=== PATIENT | male | born 1970 | race Caucasian/White ===

== ENCOUNTER 2018-12-14 09:24 | Emergency (ER) | payer OTHER ==
[~2018-12-14] VITALS: Ht 180.3 cm; Wt 95.0 kg
[2018-12-14 09:37] VITALS: BP 126/84
[2018-12-14] MEDS ORDERED: LIDOcaine 5% patch TP ONE (09:55)
[2018-12-14] MEDS ORDERED: ketorolac trometh inj. 60 MG/2 ML VIAL IM ONE (09:55)
== END 2018-12-14 10:37 | disposition home or self-care (01) ==
LOC: ER 09:25
DX: M54.2 Cervicalgia (principal); M62.838 Other muscle spasm; X58.XXXA Exposure to other specified factors, initial encounter; Y93.89 Activity, other specified; Y92.89 Other specified places as the place of occurrence of the external cause; Y99.0 Civilian activity done for income or pay
CPT/HCPCS: 96372; 99283; J1885

== ENCOUNTER 2019-01-28 23:23 | Emergency (ER) | payer OTHER ==
[~2019-01-28] VITALS: Ht 180.3 cm; Wt 90.0 kg
[2019-01-28] MEDS ORDERED: proCHLORperazine 10 MG/2 ml inj IV STA (23:40)
[2019-01-28] MEDS ORDERED: normal saline 1000ML IV soln IVB ONE (23:45)
[2019-01-28] MEDS ORDERED: proCHLORperazine 10 MG/2 ml inj IV PRN (23:45)
[2019-01-28] MEDS ORDERED: SUMAtriptan succ. 6 MG/0.5ml vial SQ ONE (23:45)
[2019-01-28] MEDS ORDERED: diphenhydrAMINE 50 mg/ml inj IV ONE (23:45)
[2019-01-29] MEDS ORDERED: metoclopramide 5 mg/ml inj IV ONE (00:10)
[2019-01-29] MEDS ORDERED: morphine 4 MG/ML inj SYRINge IV ONE (00:20)
--- NOTE | 2019-01-29 00:40 | NUR ---
RELIEVING RN FOR LUNCH, PT IS RESTING QUIETLY ON GURNEY, LIGHTS ARE OFF, RESP EVEN AND UNLABORED, FAMILY AT BEDSIDE,
[2019-01-29 01:55] VITALS: BP 128/68
== END 2019-01-29 01:57 | disposition home or self-care (01) ==
LOC: ER 23:23
DX: G43.909 Migraine, unspecified, not intractable, without status migrainosus (principal)
CPT/HCPCS: 70450; 96372; 96374; 96375; 99284; J0780; J1200; J2270; J2765; J7030; 99281; J3030

== ENCOUNTER 2025-04-19 09:19 | Emergency (ER) | payer BC, OTHER ==
[~2025-04-19] VITALS: Ht 180.3 cm; Wt 100.0 kg
[2025-04-19 09:19] VITALS: TEMP 98
--- NOTE | 2025-04-19 09:52 | ELECTROCARDIOGRAPH REPORT ---
[facility] Test Date: 2025-04-19 Test Time: 09:50:10 Pat Name: DAKOTA GARCIA Department: [facility] Patient ID: [id number] Room: Gender: M Ward Attendant: : 1970 Requested By: CARLOS REYES Order Number: [id number] Reading MD: Measurements Intervals [place] Rate: 75 P: 23 MD: 173 QRS: -28 QRSD: 109 T: 27 QT: 375 QTc: 419 Interpretive Statements Sinus rhythm Atrial premature complexes Incomplete RBBB and LAFB RSR' in V1 or V2, right VCD or RVH Left ventricular hypertrophy Please click the below link to view image of tracing.
--- NOTE | 2025-04-19 10:07 | Physician Documentation ---
History of Present Illness ~ Chief Complaint: Extremity Swelling Stated Complaint: R ARM SWELLING Time Seen by MD: 09:42 Primary Medical Doctor: JUNIOR COX A 54 years old male with no PMH came to the ED due to the concern of swelling in right upper extremity. He states that he was doing well, Yesterday, while showering he noticed swelling in the biceps region just above the elbow region in right upper extremity and does not limit the function. He regularly go to the gym , denies any trauma or pain, redness. He denies any fever, chills, pain, palpitations, shortness breath, lightheadedness. Medication Reconciliation Allergies: Coded Allergies: No Known Allergies (Unverified , 01/28/19) Past Medical History Past Medical History: No Pertinent History, Headache, Migraine, *MUSCULOSKELETAL* Past Surgical History: noncontributory Alcohol Use: None Drug Use: none Lives In: Home Occupation: employed Review [employer] Systems ROS Constitutional: No fever, chills, dizziness, weight gain or loss, night sweats Eyes: No pain, erythema, discharge, blurring of vision ENT: No sore throat, epistaxis, tinnitus Cardiovascular:No chest pain, palpitations, syncope, lower extremity edema, p aroxysmal nocturnal dyspnea Respiratory: No Shortness of breath and cough, No hemoptysis. Gastrointestinal:No Abdominal pain, vomiting,nausea and melena. Normal appetite. No constipation,diarrhea, hematemesis, Musculoskeletal: Reports swelling in right upper extremity Integumentary: No change in skin, hair, nails. No swelling, bruising, abrasions Neurologic: No weakness,No headache, neck pain, numbness or tingling of the extremities, Psychiatric: No delusions, depression, loss of interest in normal activity or change in sleep pattern, hallucinations, suicidal ideations Endocrine: No fatigue, no weakness. polydipsia, polyuria, change in appetite, heat or cold intolerance, sweating, dry skin Hematological: No bleeding, petechiae, bruising Allergies: No asthma or urticaria Physical Exam Vital Signs: Temperature: 98.0, Source: Oral, Heart Rate: 78, Respiratory Rate: 18, BP: 125/84, Pulse Oximetry: 96, Weight: 100.000 Oxygen Flow Rate: 0 General Appearance Awake , alert and oriented to time,place, person,not in distress HEENT: Atraumatic, normocephalic, PERRLA, EOMI, anicteric sclera ; pink conjunctiva, moist mucos membranes Neck: Trachea midline. Supple, normal range of motion, no JVD, no lymphadenopathy Chest and Respiratory: Equal breath sounds bilaterally, no tachypnea, wheezing, ronchi,rubs .Chest wall is symmetric and without deformity. Cardiac: S1, S2 heard,Regular rate and rhythm, no murmurs ,no gallops, no rubs. Abdomen: Soft, No tenderness, No guarding or rigidity, Serna's sign negative. normal bowel sounds x4 quadrant, no hepatosplenomegaly MSK: Range of motion of all extremities are normal. There is no joint pain or joint swelling or joint erythema. There is no muscle pain or tenderness or swelling. Extremities: Mild swelling in biceps region of the right upper extremity. No tenderness or erythema. warm, well-perfused, No cyanosis, clubbing, 2+ pulses felt Neurological: Mental status exam: alert and consciousness, orientation, memory, speech - Cranial nerve test: Cranial nerves II-XII intact. - Motor system: Normal Nutrition, normal tone, Power 5/5, no involuntary movements - Sensory system: Intact - Reflex testing: Biceps, triceps and knee reflexes 2+ - Cerebellar: Normal Skin: Warm and dry Psychiatry: Affect and mood are normal Progress Progress Note A 54 years old male with no PMH came to the ED due to the concern of swelling in right upper extremity. He states that he was doing well, Yesterday, while showering he noticed swelling in the biceps region just above the elbow region in right upper extremity and does not limit the function. He regularly go to the gym , denies any trauma or pain, redness. He denies any fever, chills, pain, palpitations, shortness breath, lightheadedness. CBC - Normal BMP - normal D-dimer - 1.14 (non-specific and not significant) EKG-heart rate, Irregular rate , [place] interval, Normal QRS, No ST/T wave changes, Normal R wave progression. Vascular Us: No evidence of DVT in the right upper extremity. CTA Chest: Unremarkable Results/Orders Results/Orders Orders - SHARON REYES MD Us Soft Tissue Mass (04/19/25 09:49) Vl Venous (04/19/25 09:49) Cta Chest Pe (04/19/25 11:40) Completed Orders - SHARON REYES MD Electrocardiogram (04/19/25 09:39) Cbc/Diff (04/19/25 09:49) BMP (04/19/25 09:49) MG (04/19/25 09:49) Hs Troponin I W Calculations (04/19/25 09:49) Us Soft Tissue Mass (04/19/25 09:49) Vl Venous (04/19/25 09:49) D-Dimer (04/19/25 09:49) Cta Chest Pe (04/19/25 11:40) Normal Saline 1000ml (0.9% Sodium Chlori (04/19/25 10:55) Iohexol 350mg/Ml 100ml (Omnipaque 350mg/ (04/19/25 11:10) Laboratory Tests Test 04/19/25 10:07 White Blood Count 7.2 Red Blood Count 5.23 Hemoglobin 14.9 Hematocrit 44.9 Mean Corpuscular Volume 85.7 Mean Corpuscular Hemoglobin 28.6 Mean Corpuscular Hemoglobin Concent 33.3 Red Cell Distribution Width 13.8 Platelet Count 239 Mean Platelet Volume 9.0 Neutrophils (%) (Auto) 67.4 Lymphocytes (%) (Auto) 19.9 L Monocytes (%) (Auto) 10.3 Eosinophils (%) (Auto) 2.1 Basophils (%) (Auto) 0.3 Neutrophils # (Auto) 4.8 Lymphocytes # (Auto) 1.4 Monocytes # (Auto) 0.7 Eosinophils # (Auto) 0.2 Basophils # (Auto) 0.0 CBC Comment D-Dimer 1.14 H D-Dimer Comment Sodium Level 141 Potassium Level 4.0 Chloride Level 106 Carbon Dioxide Level 30.1 Anion Gap 5 L Blood Urea Nitrogen 11 Creatinine 0.83 Estimated GFR/1.73 m2 > 90 BUN/Creatinine Ratio 13.3 Glucose Level 78 Calcium Level 9.2 Magnesium Level 2.1 Troponin I High Sensitivity 12 Albumin 3.7 Chemistry Comments EKG/XRAY/CT/US/VASC/MRI EKG : Additional Comment EKG as interpreted by EDMD indicating normal sinus rhythm with a rate of 85 bpm, normal access, no ischemia CT : Impression CLINICAL INFORMATION: Rule out pulmonary embolism. TECHNIQUE: Axial CTA images of the chest were obtained after the uneventful administration of 100 mL of Omnipaque 350 IV contrast. Coronal and sagittal reformatted images and MIP images were obtained, reviewed, and stored. One or more of the following dose reduction techniques were used: Automated exposure control. Adjustment of mA and/or kV according to patient size. CTDIvol = 18.82, 26.67, 0.14 mGy DLP = 769.94 mGy-cm COMPARISON: None FINDINGS: Pulmonary arteries: Limited examination for evaluation of pulmonary embolism due to suboptimal contrast opacification of the pulmonary arteries. No central or lobar pulmonary embolism. Can not exclude segmental or subsegmental pulmonary emboli. Aorta: No aneurysm or dissection. Cardiac: Heart size is within normal limits. No significant coronary artery calcification. Mediastinum/laura: No mediastinal or hilar lymphadenopathy. Lungs: Dependent atelectasis in the lung bases. No focal consolidation, pneumothorax, or pleural effusion. Chest wall: No mass or other abnormality. Upper abdomen: 1 cm left adrenal nodule is indeterminate on this single phase of contrast. Bones: No acute fracture or suspicious intraosseous lesions. IMPRESSION: 1. Limited examination for evaluation of pulmonary embolism due to suboptimal contrast opacification of the pulmonary arteries. No central or lobar pulmonary embolism. Can not exclude segmental or subsegmental pulmonary emboli. 2. Otherwise, no evidence of acute disease in the chest. Ultrasound : Impression EXAM: US US SOFT TISSUE MASS CLINICAL HISTORY: right bicep swelling COMPARISON: None TECHNIQUE: Targeted sonographic evaluation of the soft tissues of the biceps was obtained utilizing grayscale and color Doppler imaging. Findings/Impression: There is no evidence for drainable collection. There is no evidence for solid or cystic mass in the site. No vascular abnormalities identified at this site. Mild soft-tissue edema is present associated with the biceps in the area of interest. MRI can be obtained to further evaluate if clinically indicated. Vascular : Impression TECHNIQUE: Real-time ultrasound imaging, with color Doppler and compression of the right upper extremity veins INDICATION: Right upper extremity swelling COMPARISON: None FINDINGS: There is normal compressibility and flow augmentation in all of the imaged deep veins. There are no filling defects. IMPRESSION: No evidence of DVT in the right upper extremity. Medical Decision Making Additional information obtaine: other Findings not Significant Differential Dx:Considerations: Include: Contusion, Deep venous thrombosis, Muscle spasm, Strain Additional Comment 54 year-old male presenting with right upper arm swelling. Labs and imaging ordered. Ultrasound showed no DVT. Soft tissue ultrasound showed some hypervascular, but no fluid collection or any other abnormalities in the muscle. Lab workup did have an elevated D dimmer thus A CT angiogram was done to rule out PE. This was negative. I suspect the patient likely sustained a biceps muscle strain. I advisice, rest and monitoring for improvement and resolution. Follow up with PCP in return to ED with worsening symptoms. Departure Disposition: HOME / SELF CARE / HOMELESS Impression: Primary Impression: Strain of upper arm, right Additional Instructions: Please apply ice or heat to the right arm as needed. Monitor for improvement. Avoid any heavy lifting with the right arm for the next week. Return to ED if worsening. Referrals: NO PRIMARY CARE PROVIDER (PCP) [facility] Form Admit Criteria Met or Not Met: NO Signature Scribe Signature: No Scribe Attestation: Resident attestation The above note has been reviewed and supervised by attending physician Patient was seen, examined and discussed with the attending physician Thompson Elder MD Internal Medicine Resident, PGY 1 The note accurately reflects work and decisions made by me.Sharon Gonsalez MD 04/24/25 19:50 JENNIFER ELDER, RES Apr 19, 2025 10:07 SHARON REYES MD Apr 19, 2025 12:12
[2025-04-19 10:30] LABS: MEAN PLATELET VOLUME 9.0 FL (7.4-10.4); RED CELL DISTRIBUTION WIDTH 13.8 % (11.5-14.5)
[2025-04-19 10:46] LABS: CREATININE 0.83 MG/DL (0.60-1.10); TOTAL CARBON DIOXIDE 30.1 MMOL/L (24-32); eCRCL 106 ML/MIN; eGFR > 90 ML/MIN
[2025-04-19] MEDS: normal saline 1000ml 1,000 ML IV ONE (11:42)
--- NOTE | 2025-04-19 11:49 | VASCULAR REPORT ---
TECHNIQUE: Real-time ultrasound imaging, with color Doppler and compression of the right upper extremity veins INDICATION: Right upper extremity swelling COMPARISON: None FINDINGS: There is normal compressibility and flow augmentation in all of the imaged deep veins. There are no filling defects. IMPRESSION: No evidence of DVT in the right upper extremity.
--- NOTE | 2025-04-19 11:59 | RADIOLOGY REPORT ---
CLINICAL INFORMATION: Rule out pulmonary embolism. TECHNIQUE: Axial CTA images of the chest were obtained after the uneventful administration of 100 mL of Omnipaque 350 IV contrast. Coronal and sagittal reformatted images and MIP images were obtained, reviewed, and stored. One or more of the following dose reduction techniques were used: Automated exposure control. Adjustment of mA and/or kV according to patient size. CTDIvol = 18.82, 26.67, 0.14 mGy DLP = 769.94 mGy-cm COMPARISON: None FINDINGS: Pulmonary arteries: Limited examination for evaluation of pulmonary embolism due to suboptimal contrast opacification of the pulmonary arteries. No central or lobar pulmonary embolism. Can not exclude segmental or subsegmental pulmonary emboli. Aorta: No aneurysm or dissection. Cardiac: Heart size is within normal limits. No significant coronary artery calcification. Mediastinum/laura: No mediastinal or hilar lymphadenopathy. Lungs: Dependent atelectasis in the lung bases. No focal consolidation, pneumothorax, or pleural effusion. Chest wall: No mass or other abnormality. Upper abdomen: 1 cm left adrenal nodule is indeterminate on this single phase of contrast. Bones: No acute fracture or suspicious intraosseous lesions. IMPRESSION: 1. Limited examination for evaluation of pulmonary embolism due to suboptimal contrast opacification of the pulmonary arteries. No central or lobar pulmonary embolism. Can not exclude segmental or subsegmental pulmonary emboli. 2. Otherwise, no evidence of acute disease in the chest.
[2025-04-19 12:40] VITALS: BP 123/80; PULSE 90; RESP 16; O2SAT 98
--- NOTE | 2025-04-19 14:19 | RADIOLOGY REPORT ---
EXAM: US US SOFT TISSUE MASS CLINICAL HISTORY: right bicep swelling COMPARISON: None TECHNIQUE: Targeted sonographic evaluation of the soft tissues of the biceps was obtained utilizing grayscale and color Doppler imaging. Findings/Impression: There is no evidence for drainable collection. There is no evidence for solid or cystic mass in the site. No vascular abnormalities identified at this site. Mild soft-tissue edema is present associated with the biceps in the area of interest. MRI can be obtained to further evaluate if clinically indicated.
== END 2025-04-19 12:43 | disposition home or self-care (01) ==
LOC: ER 09:19
DX: S46.911A Strain of unspecified muscle, fascia and tendon at shoulder and upper arm level, right arm, initial encounter (principal); G43.909 Migraine, unspecified, not intractable, without status migrainosus; I49.8 Other specified cardiac arrhythmias; X58.XXXA Exposure to other specified factors, initial encounter; Y93.89 Activity, other specified; Y92.89 Other specified places as the place of occurrence of the external cause; Y99.8 Other external cause status
CPT/HCPCS: 36415; 71275; 76882; 80048; 83735; 84484; 85025; 85379; 93005; 93971; 96360; 99284; J7030; Q9967; 99285